=== PATIENT | female | born 1945 ===

== ENCOUNTER 2018-06-08 09:54 | Outpatient (CLI) | payer MEDICARE | END 2018-06-08 09:55 | disposition home or self-care (01) | LOC: LAB.F 09:54 | DX: E03.9 Hypothyroidism, unspecified (principal) | CPT/HCPCS: 36415; 84443 ==

== ENCOUNTER 2018-07-09 09:26 | Outpatient (CLI) | payer MEDICARE | END 2018-07-09 09:27 | disposition home or self-care (01) | LOC: LAB.F 09:26 | PROVIDERS: ATTEND Family Medicine | DX: E03.9 Hypothyroidism, unspecified (principal) | CPT/HCPCS: 36415; 84443 ==

== ENCOUNTER 2021-03-28 08:00 | Outpatient (CLI) | payer MEDICARE | END 2021-03-28 23:59 | disposition home or self-care (01) | LOC: LAB.S 08:00 | PROVIDERS: ATTEND Emergency Medicine | DX: R05 Cough (principal); Z20.822 Contact with and (suspected) exposure to COVID-19 ==

== ENCOUNTER 2023-05-04 10:45 | Outpatient (CLI) | payer MEDICARE ==
[2023-05-04 11:35] LABS: THYROID STIMULATING HORMONE 2.62 uIU/mL (0.34-5.60)
[2023-05-04 12:00] LABS: CHOL/HDL RATIO 2.8 (<4.4); CHOLESTEROL 213 mg/dL; HDL CHOLESTEROL 76 mg/dL; LDL CHOLESTEROL,CALCULATED 124 mg/dL; LDL/HDL RATIO 1.6 (<4.4); TRIGLYCERIDES 64 mg/dL (48-352); VLDL CHOLESTEROL 13 mg/dL
== END 2023-05-04 10:46 | disposition home or self-care (01) ==
LOC: LAB 10:45
PROVIDERS: ATTEND Physician Assistant
DX: E03.9 Hypothyroidism, unspecified (principal); Z13.220 Encounter for screening for lipoid disorders
CPT/HCPCS: 36415; 80061; 83721; 84439; 84443

== ENCOUNTER 2023-05-19 15:20 | Outpatient (CLI) | payer MEDICARE ==
--- NOTE | 2023-05-19 16:47 | Ultrasound Report ---
PROCEDURE: Pelvic w/Transvaginal INDICATIONS: OVARIAN CYST TECHNIQUE: Real-time scanning was performed of the pelvic organs, with image documentation. Additional endovagi nal scanning was necessary due to incomplete visualization of the adnexal and endometrial structures by transabdominal scanning. COMPARISON: CT of abdomen and pelvis dated 03/02/2023. FINDINGS: Uterus: Uterus is surgically absent. No abnormality is seen in vaginal cuff region. Ovaries: Right ovary is not visualized. Left ovary measures 2.1 x 2.6 x 1.7 cm in size with a volume of 4.7 cc. 1.5 x 1.4 x 2.3 cm anechoic structure is noted in left ovary likely represent a simple cys t. Less than 12 follicles can be seen in each ovary. No adnexal masses are seen. No cystic lesions m easuring greater than 3 cm. Other: Small amount of fluid is seen in left adnexa. IMPRESSION: 1. Prior hysterectomy. No abnormality is seen in the vaginal cuff region. 2. Possible small cyst in left ovary measures 1.5 x 2.3 x 1.4 cm in size. No solid-appearing ovarian lesion. Right ovary is not visualized. No adnexal mass. Reviewed by: Venkat Ayala MD on 05/19/2023 4:45 PM PDT Approved by: Venkat Ayala MD on 05/19/2023 4:45 PM PDT Station ID: [id number]
== END 2023-05-19 15:21 | disposition home or self-care (01) ==
LOC: DI 15:20
PROVIDERS: ATTEND Physician Assistant
DX: R18.8 Other ascites (principal); N83.202 Unspecified ovarian cyst, left side; Z90.710 Acquired absence of both cervix and uterus

== ENCOUNTER 2023-10-28 08:00 | Outpatient (CLI) | payer MEDICARE | END 2023-10-28 23:59 | disposition home or self-care (01) | LOC: LAB.N 08:00 | PROVIDERS: ATTEND Nurse Practitioner | DX: N39.0 Urinary tract infection, site not specified (principal) | CPT/HCPCS: 87086 ==